=== PATIENT | female | born 1960 | race Two or more races ===

== ENCOUNTER 2024-07-23 18:00 | Inpatient (IN) | payer MEDICAID ==
[~2024-07-23] VITALS: Ht 157.5 cm; Wt 77.3 kg
[2024-07-23] MEDS ORDERED: mag hydrox/Alum hydrox/simeth 30ml oral suspension PO PRN (21:55)
[2024-07-23] MEDS ORDERED: acetaminophen 325mg tablet PO PRN ×2 (21:55)
[2024-07-23 23:04] VITALS: RESP 18; O2SAT 96
[2024-07-23] MEDS ORDERED: FAMO20TA8 PO (23:20)
[2024-07-23] MEDS ORDERED: CARB15DR EACHEYE (23:20)
[2024-07-23] MEDS ORDERED: DILT-94 PO (23:20)
[2024-07-23] MEDS ORDERED: SIMV10TA98 PO (23:20)
[2024-07-23] MEDS ORDERED: HYDR25TA5 PO (23:20)
[2024-07-23] MEDS ORDERED: FEXO1TAB8 PO (23:20)
[2024-07-23] MEDS ORDERED: OMEP20TA23 PO (23:20)
[2024-07-24 07:00] VITALS: RESP 16; O2SAT 98
[2024-07-24 08:00] VITALS: BP 118/78; PULSE 88; RESP 16; TEMP 98.3; O2SAT 98
[2024-07-24] MEDS ORDERED: CARBOXYMETHYLCELLULOSE SODIUM EACHEYE PRN (09:15)
[2024-07-24 09:52] VITALS: BP 114/83; PULSE 86
[2024-07-24] MEDS: FLU VACC TS2024-25(6MOS UP)/PF 45 MCG/0.5 ML SYRINGE IMVAC ONE (10:00)
[2024-07-24] MEDS: HYDROchlorothiazide 25mg tablet PO ONE (10:19)
[2024-07-24] MEDS: diltiazem CD 120mg capsule (once-daily) PO SCH (10:19)
[2024-07-24] MEDS: famotidine 20mg tablet PO ONE (10:19)
[2024-07-24 10:24] LABS: CHOL/HDL RATIO 3.5 (0.00-4.99); CHOLESTEROL 222 MG/DL (0-200); HDL CHOLESTEROL 63 MG/DL (35-60); LDL CHOLESTEROL 134 MG/DL (50-100); TRIGLYCERIDES 51 MG/DL (20-135)
[2024-07-24 10:38] LABS: HEMOGLOBIN A1C 5.4 % (4.5-6.2)
[2024-07-24 19:00] VITALS: RESP 16; O2SAT 97
[2024-07-24 20:00] VITALS: BP 116/74; PULSE 78; RESP 16; TEMP 97.9; O2SAT 97
[2024-07-24] MEDS: simvastatin 20mg tablet PO SCH (22:17)
[2024-07-24] MEDS: traZODone 50mg tablet PO SCH (22:17)
[2024-07-24] MEDS: famotidine 20mg tablet PO SCH (22:17)
[2024-07-25 07:37] VITALS: BP 93/59; PULSE 73; RESP 17; TEMP 97.5; O2SAT 96
[2024-07-25 08:30] VITALS: RESP 17; O2SAT 96
[2024-07-25] MEDS: venlafaxine XR 37.5mg cap (Q24H) PO SCH (09:15)
[2024-07-25] MEDS: pantoprazole 40mg Tablet.DR PO SCH (09:15)
[2024-07-25 09:30] VITALS: BP 113/78; PULSE 78; RESP 16
[2024-07-25] MEDS: HYDROchlorothiazide 25mg tablet PO SCH (09:59)
[2024-07-25] MEDS: magnesium hydroxide 30ml (MOM) UD suspension PO PRN (17:16)
[2024-07-25 20:00] VITALS: BP 113/82; PULSE 77; RESP 16; TEMP 97.9
[2024-07-26 02:30] VITALS: RESP 16
[2024-07-26 05:14] LABS: HBSAG SCREEN Negative (Negative); HEP B CORE AB, IGM Negative (Negative); HEP B CORE AB, TOT Negative (Negative); HEP B SURF AB Non Reactive (.)
[2024-07-26 07:25] VITALS: BP 112/65; PULSE 79; RESP 16; TEMP 97.9; O2SAT 97
[2024-07-26] MEDS: venlafaxine XR 37.5mg cap (Q24H) PO SCH (09:59)
[2024-07-26 10:03] VITALS: RESP 16; O2SAT 97
[2024-07-26] MEDS ORDERED: FAMO20TA8 PO (12:47)
[2024-07-26] MEDS ORDERED: PANT40TA54 PO (12:47)
[2024-07-26] MEDS ORDERED: VENL37.59 PO (12:47)
[2024-07-26] MEDS ORDERED: TRAZ-251 PO (12:47)
[2024-07-26] MEDS ORDERED: traZODone 50mg tablet PO SCH (21:00)
== END 2024-07-26 14:43 | disposition home or self-care (01) | DRG 751 ==
LOC: UNDOADMIN 18:00 → ADULT MH 18:00
PROVIDERS: ADMIT Psychiatry & Neurology Psychiatry; ATTEND Psychiatry & Neurology Psychiatry
PROC: GZ56ZZZ Individual Psychotherapy, Supportive (ICD-10-PCS; 2024-07-24)
PROC: GZHZZZZ Group Psychotherapy (ICD-10-PCS; principal; 2024-07-26)
DX: F33.2 Major depressive disorder, recurrent severe without psychotic features (principal); R45.851 Suicidal ideations; F45.22 Body dysmorphic disorder; F41.9 Anxiety disorder, unspecified; Z79.899 Other long term (current) drug therapy
CPT/HCPCS: 36415; 80061; 83036; 86704; 86705; 86706; 87081; 87340

== ENCOUNTER 2024-10-05 16:41 | Emergency (ER) | payer MEDICAID ==
[~2024-10-05] VITALS: Ht 157.5 cm; Wt 76.4 kg
[~2024-10-05 16:41] MED LIST: CARB15DR EACHEYE; DILT-94 PO; FAMO20TA8 PO; FEXO1TAB8 PO; HYDR25TA5 PO; PANT40TA54 PO; SIMV10TA98 PO; TRAZ-251 PO; VENL37.59 PO
[2024-10-05 17:35] LABS: BASOPHILS % (AUTO) 0.4 % (0-1); EOSINOPHILS # (AUTO) 0.1 X10'3 (0-0.9); EOSINOPHILS % (AUTO) 0.9 % (0-6); HEMATOCRIT 39.3 % (35.0-45.0); HEMOGLOBIN 13.3 g/dl (12.0-16.0); LYMPHOCYTES # (AUTO) 1.2 X10'3 (1.1-4.8); LYMPHOCYTES % (AUTO) 15.8 % (21-51); MEAN CORPUSCULAR HEMOGLOBIN 29.3 PG (27.0-31.0); MEAN CORPUSCULAR HGB CONC 33.8 g/dL (33.0-36.5); MEAN CORPUSCULAR VOLUME 86.8 FL (78-98); MEAN PLATELET VOLUME 7.8 FL (7.4-10.4); MONOCYTES # (AUTO) 0.5 X10'3 (0-0.9); MONOCYTES % (AUTO) 7.1 % (2-12); NEUTROPHILS # (AUTO) 5.8 X10'3 (1.8-7.7); NEUTROPHILS % (AUTO) 75.8 % (42-75); PLATELET COUNT 224 X10'3 (140-440); RED BLOOD COUNT 4.53 X10'6 (4.20-5.60); RED CELL DISTRIBUTION WIDTH 14.2 % (11.5-14.5); WHITE BLOOD COUNT 7.7 X10'3 (4.5-11.0)
[2024-10-05 17:46] LABS: ALANINE AMINOTRANSFERASE 33 U/L (12-78); ALBUMIN 3.7 G/DL (3.4-5.0); ALKALINE PHOSPHATASE 98 IU/L (46-116); ANION GAP 6 (8-16); ASPARTATE AMINO TRANSFERASE 28 U/L (10-37); BILIRUBIN,TOTAL 0.4 MG/DL (0.1-1.0); BLOOD UREA NITROGEN 18 MG/DL (7-18); BUN/CREATININE RATIO 26.5 (10.0-20.0); CALCIUM 8.8 MG/DL (8.5-10.1); CHLORIDE 108 MMOL/L (99-107); CREATININE 0.68 MG/DL (0.40-0.90); GLUCOSE 98 MG/DL (70-104); POTASSIUM 3.6 MMOL/L (3.5-5.1); SODIUM 145 MMOL/L (135-145); TOTAL CARBON DIOXIDE 30.8 MMOL/L (24-32); TOTAL PROTEIN 7.3 G/DL (6.4-8.2); eCRCL 68 ML/MIN; eGFR 88 ML/MIN
[2024-10-05 17:52] LABS: THYROID STIMULATING HORMONE 2.12 ulU/ml (0.34-4.50)
[2024-10-05 22:10] LABS: BILIRUBIN,URINE NEGATIVE (Neg); CLARITY,URINE CLEAR (Clear); COLOR,URINE YELLOW (Yellow); GLUCOSE, URINE NEGATIVE (Neg); KETONES,URINE TRACE mg/dl (Neg); LEUKOCYTE ESTERASE ,URINE NEGATIVE (Neg); NITRITES, URINE NEGATIVE (Neg); OCCULT BLOOD,URINE NEGATIVE (Neg); PH,URINE 6.5 (4.8-8.0); PROTEIN,URINE NEGATIVE (Neg); UROBILINOGEN,URINE 0.2 E.U/dL (0.2-1.0)
[2024-10-05 22:19] LABS: UA COLLECTION TYPE CLN CATCH MIDSTREAM
[2024-10-05 22:30] LABS: URINE AMPHETAMINE SCREEN NEGATIVE (Neg); URINE BARBITUATE SCREEN NEGATIVE (Neg); URINE BENZODIAZEPINES SCREEN NEGATIVE (Neg); URINE CANNABINOID SCREEN NEGATIVE (Neg); URINE COCAINE SCREEN NEGATIVE (Neg); URINE METHADONE SCREEN NEGATIVE (Neg); URINE OPIATE SCREEN NEGATIVE (Neg); URINE PHENCYCLIDINE SCREEN NEGATIVE (Neg)
[2024-10-06] MEDS ORDERED: VENL37.59 PO (03:52)
[2024-10-06] MEDS ORDERED: TRAZ-256 PO ×2 (03:52→13:08)
[2024-10-06] MEDS ORDERED: PANT40TA54 PO (03:52)
[2024-10-06] MEDS ORDERED: FAMO20TA8 PO (03:52)
[2024-10-06] MEDS: venlafaxine XR 37.5mg cap (Q24H) PO SCH (08:08)
[2024-10-06] MEDS: HYDROchlorothiazide 25mg tablet PO SCH (08:09)
[2024-10-06] MEDS: famotidine 20mg tablet PO SCH (08:09)
[2024-10-06] MEDS: pantoprazole 40mg Tablet.DR PO SCH (08:10)
[2024-10-06] MEDS: diltiazem CD 120mg capsule (once-daily) PO SCH (08:10)
[2024-10-06] MEDS ORDERED: FAMO-49 PO (13:08)
[2024-10-06] MEDS ORDERED: HYDR25TA5 PO (13:08)
[2024-10-06] MEDS ORDERED: VENL37.58 PO (13:08)
[2024-10-06] MEDS ORDERED: DILT360C52 PO (13:08)
[2024-10-06 14:52] VITALS: BP 133/78; PULSE 79; RESP 14; TEMP 98.3; O2SAT 100
[2024-10-06] MEDS ORDERED: traZODone 50mg tablet PO SCH (21:00)
== END 2024-10-06 14:56 | disposition home or self-care (01) ==
LOC: ER 16:42
DX: F32.A Depression, unspecified (principal); R45.851 Suicidal ideations; Z20.822 Contact with and (suspected) exposure to COVID-19
CPT/HCPCS: 36415; 80053; 80305; 81003; 84443; 85025; 87811; 99285